=== PATIENT | female | born 1940 | race Caucasian/White ===

== ENCOUNTER 2016-09-22 13:38 | Outpatient (CLI) | payer OTHER ==
[2015-03-12 15:36] VITALS: BP 142/75
[2016-09-22 14:02] LABS: BASOPHILS % 0.3 (0.0-1.5); EOSINOPHILS % 1.9 % (0.0-6.8); LYMPHOCYTES # 1.4 # k/uL (0.6-4.0); MONOCYTES # 0.1 # k/uL (0.0-0.9); MONOCYTES % 2.7 % (0.0-11.0); NEUTROPHILS # 3.3 # k/uL (1.4-7.7)
[2016-09-22 14:31] LABS: eGFR (African) 11; eGFR (Non-African) 9
[2016-09-23 03:32] LABS: PROTEIN mg/dL 25 mg/dL
== END 2016-09-22 13:40 ==
LOC: LAB 13:38
PROVIDERS: ATTEND Internal Medicine Nephrology
DX: N17.9 Acute kidney failure, unspecified (principal); I10 Essential (primary) hypertension; E11.9 Type 2 diabetes mellitus without complications; D68.51 Activated protein C resistance; E03.9 Hypothyroidism, unspecified; E11.40 Type 2 diabetes mellitus with diabetic neuropathy, unspecified; Z68.23 Body mass index [BMI] 23.0-23.9, adult
CPT/HCPCS: 36415; 80053; 82570; 84155; 84156; 84165; 84550; 85025

== ENCOUNTER 2016-10-21 11:55 | Outpatient (CLI) | payer OTHER ==
[2015-03-12 15:36] VITALS: BP 142/75
[2016-10-21 12:55] LABS: eGFR (African) 11; eGFR (Non-African) 9
== END 2016-10-21 11:56 ==
LOC: LAB 11:55
PROVIDERS: ATTEND Family Medicine
DX: R25.2 Cramp and spasm (principal); M10.39 Gout due to renal impairment, multiple sites
CPT/HCPCS: 36415; 80048; 83735; 84550

== ENCOUNTER 2016-11-09 13:43 | Outpatient (CLI) | payer OTHER ==
[2015-03-12 15:36] VITALS: BP 142/75
== END 2016-11-09 13:44 ==
LOC: RT 13:43
PROVIDERS: ATTEND Family Medicine
DX: E03.9 Hypothyroidism, unspecified (principal)
CPT/HCPCS: 36415; 84443

== ENCOUNTER 2016-11-10 11:01 | Outpatient (CLI) | payer OTHER ==
[2015-03-12 15:36] VITALS: BP 142/75
== END 2016-11-10 11:02 ==
LOC: RAD 11:01
PROVIDERS: ATTEND Family Medicine
DX: Z78.0 Asymptomatic menopausal state (principal)
CPT/HCPCS: 77080

== ENCOUNTER 2016-12-01 11:37 | Outpatient (CLI) | payer OTHER ==
[2015-03-12 15:36] VITALS: BP 142/75
== END 2016-12-01 11:40 ==
LOC: CARD 11:37
PROVIDERS: ATTEND Internal Medicine Cardiovascular Disease
DX: R94.31 Abnormal electrocardiogram [ECG] [EKG] (principal); I10 Essential (primary) hypertension; E11.9 Type 2 diabetes mellitus without complications; N18.4 Chronic kidney disease, stage 4 (severe); Z86.711 Personal history of pulmonary embolism
CPT/HCPCS: G0463

== ENCOUNTER 2016-12-08 13:05 | Outpatient (CLI) | payer OTHER ==
[2015-03-12 15:36] VITALS: BP 142/75
[2016-12-08 13:50] LABS: BASOPHILS % 0.7 (0.0-1.5); EOSINOPHILS % 1.7 % (0.0-6.8); MEAN CORPUSCULAR HEMOGLOBIN 33.4 pg (28.0-34.0); MEAN CORPUSCULAR VOLUME 103.2 fl (80.0-100.0); MONOCYTES % 3.5 % (0.0-11.0); NEUTROPHILS # 3.8 # k/uL (1.4-7.7)
[2016-12-08 14:01] LABS: eGFR (African) 6; eGFR (Non-African) 5
[2016-12-09 02:38] LABS: SERUM IRON 83 ug/dL (37-145)
== END 2016-12-08 13:06 ==
LOC: LAB 13:05
PROVIDERS: ATTEND Internal Medicine Nephrology
DX: N17.9 Acute kidney failure, unspecified (principal); I10 Essential (primary) hypertension; E11.9 Type 2 diabetes mellitus without complications; D68.51 Activated protein C resistance; E03.9 Hypothyroidism, unspecified; E11.40 Type 2 diabetes mellitus with diabetic neuropathy, unspecified; Z68.23 Body mass index [BMI] 23.0-23.9, adult
CPT/HCPCS: 36415; 80053; 83540; 83550; 84443; 84550; 85025

== ENCOUNTER 2017-03-03 14:40 | Outpatient (CLI) | payer OTHER ==
[2015-03-12 15:36] VITALS: BP 142/75
--- NOTE | 2017-03-03 19:06 | Diagnostic Imaging Report ---
DELFION SALAZAR [facility] [address] [facility] [address] [id number] Report Submission Date: Mar 03, 2017 3:59:29 PM CDT Patient Study Name: RICH VAZQUEZ Date: Mar 03, 2017 2:49:10 PM CDT Modality Type: CR Gender: F Description: LOWER EXTREMITY : 38 Institution: [facility] Physician: DELFINO SALAZAR Left ankle -three views CLINICAL HISTORY: Left lateral ankle pain for 2 weeks. FINDINGS: Examination of the left ankle in AP, lateral and oblique views fails to demonstrate evidence of fracture or dislocation. The ankle mortise is anatomic. Extensive vascular calcification is present. Calcaneal spurs are incidentally noted on lateral view. IMPRESSION: No fracture. Extensive vascular calcification. Electronically signed on Mar 03, 2017 3:59:29 PM CDT by: Bradley ESCOBAR
== END 2017-03-03 14:42 ==
LOC: RAD 14:40
PROVIDERS: ATTEND Family Medicine
DX: M25.572 Pain in left ankle and joints of left foot (principal)
CPT/HCPCS: 36415; 73610; 84550